=== PATIENT | male | born 1950 | race Caucasian/White ===

== ENCOUNTER 2019-02-22 19:36 | Observation (INO) | payer MEDICARE ==
[~2019-02-22] VITALS: Ht 188 cm; Wt 119.5 kg
--- NOTE | 2019-02-22 19:40 | NUR ---
BIB AMBULANCE FROM [facility] S/P [facility] WHILE HIKING AT [employer], WENT TO [facility] ED WITH LEFT HIP PAIN AND ABRASIONS TO FACE, NOSE, LEFT ELBOW, BILATERAL HANDS, BILATERAL KNEES, LEFT BACK. A&OX4. NO LOC WITH FALL. PT HERE FOR ADMISSION TO HOSPITAL FOR 24 HOUR OBSERVATION AND REPEAT HEAD CT. PT TAKING PLAVIX AND XARELTO. CONT BP, PULSE OX, CARDIAC MONITORS IN PLACE. CMS AND NEURO INTACT. ASSESSMENT COMPLETED. RATES PAIN 1/10 IN LEFT HIP, REFUSES NEED FOR PAIN MEDICATION "THEY GAVE ME TYLENOL AT THE OTHER HOSPITAL." DENIES NECK OR MIDLINE BACK PAIN AND ANY CP, SOB, N/V/D, VISUAL CHANGES OR GIBSON. ON WAY TO ED. FALL PRECAUTIONS IN PLACE. SIDE RIALS UPX2. NO ACITVE BLEEDING FROM ANY WOUNDS. AWAITING EVAL BY ERP.
--- NOTE | 2019-02-22 20:10 | NUR ---
DR. MONROY AT BEDSIDE FOR EVALUATION. AWAITING ORDERS.
--- NOTE | 2019-02-22 20:27 | NUR ---
PT SPOUSE DAPHNE CALLED ([phone]) PER PT REQUEST AND UPDATED ON POC, PT SPOUSE TO BRING MEDICATIONS FOR ACCURATE MED REC.
--- NOTE | 2019-02-22 20:53 | NUR ---
VERBAL REPORT TO VINAY INFANTE AT THIS TIME FOR ROOM 364.
[2019-02-22] MEDS ORDERED: ATOR-2 PO (21:20)
[2019-02-22] MEDS ORDERED: RIVA20TA PO (21:20)
[2019-02-22] MEDS ORDERED: METF500T17 PO (21:20)
[2019-02-22] MEDS ORDERED: LISI5TAB7 PO (21:20)
[2019-02-22] MEDS ORDERED: CLOP75TA52 PO (21:20)
[2019-02-22] MEDS ORDERED: SOTA120T26 PO (21:20)
[2019-02-22] MEDS ORDERED: CARV6.252 PO (21:20)
[2019-02-22] MEDS ORDERED: hydrALAzine 20 MG/ML, 1ML IVPush PRN (23:00)
[2019-02-22] MEDS ORDERED: DOCUSATE 100 MG CAPSULE PO PRN (23:00)
[2019-02-22] MEDS ORDERED: LIDODERM 5% PATCH TD PRN (23:00)
[2019-02-22] MEDS ORDERED: ACETAMINOPHEN 325 MG TABLET PO PRN (23:00)
[2019-02-22] MEDS ORDERED: ONDANSETRON ODT 4 MG PO PRN (23:00)
[2019-02-22] MEDS: CARVEDILOL 6.25 MG TABLET PO SCH (23:36)
[2019-02-22] MEDS: LISINOPRIL 5 MG TABLET PO SCH (23:36)
[2019-02-22] MEDS: SOTALOL 120MG TABLET PO SCH (23:36)
[2019-02-23 02:19] VITALS: BP 139/69
[2019-02-23 05:08] LABS: BASOPHILS # (AUTO) 0.04 x10^3/uL (0-0.1); BASOPHILS % (AUTO) 1 % (0-1); EOSINOPHILS # (AUTO) 0.24 x10^3/uL (0-0.4); EOSINOPHILS % (AUTO) 3 % (1-7); LYMPHOCYTES # (AUTO) 2.41 x10^3/uL (1-3.4); LYMPHOCYTES % (AUTO) 34 % (22-44); MD NO; MEAN CORPUSCULAR HEMOGLOBIN 31.8 pg (27.5-34.5); MEAN CORPUSCULAR HGB CONC 33.1 g/dL (33.2-36.2); MEAN CORPUSCULAR VOLUME 95.9 fL (81-97); MEAN PLATELET VOLUME 8.8 fL (7.4-10.4); MONOCYTES # (AUTO) 0.74 x10^3/uL (0.2-0.8); MONOCYTES % (AUTO) 10 % (2-9); NEUTROPHILS # (AUTO) 3.72 x10^3/uL (1.8-6.8); NEUTROPHILS % (AUTO) 52 % (42-75); PLATELET COUNT 206 x10^3/uL (130-400); RED BLOOD COUNT 4.69 x10^6/uL (4.38-5.82); RED CELL DISTRIBUTION WIDTH 13.4 % (9.4-14.8)
[2019-02-23 05:15] LABS: ANION GAP 6 mmol/L (5-15); CALCIUM 8.6 mg/dL (8.5-10.1); CHLORIDE 109 mmol/L (98-107); CREATININE 0.73 mg/dL (0.7-1.3)
[2019-02-23 07:04] VITALS: BP 132/64
[2019-02-23] MEDS ORDERED: ATORVASTATIN 80 MG TABLET PO SCH (09:00)
[2019-02-23] MEDS: SOTALOL 120MG TABLET PO SCH (10:11)
[2019-02-23] MEDS: CARVEDILOL 6.25 MG TABLET PO SCH (10:11)
[2019-02-23] MEDS: LISINOPRIL 5 MG TABLET PO SCH (10:12)
[2019-02-23 13:48] VITALS: BP 106/73
== END 2019-02-23 17:10 | disposition home or self-care (01) ==
LOC: ED 20:41 → UNDOADMOB 20:45 → EDIP 20:45 → INTOOBSV 20:45 → EDIP 21:11 → 3NE 21:11 → EDIP 22:53 → UNDODISOB 02-23 17:10 → 3NE 02-23 17:10 → DCLOUNGE 02-23 17:10
PROVIDERS: ADMIT Internal Medicine; ATTEND Internal Medicine
DX: S00.81XA Abrasion of other part of head, initial encounter (principal); S00.31XA Abrasion of nose, initial encounter; S80.212A Abrasion, left knee, initial encounter; S80.211A Abrasion, right knee, initial encounter; S60.812A Abrasion of left wrist, initial encounter; M25.552 Pain in left hip; D68.69 Other thrombophilia; I48.2 Chronic atrial fibrillation; I11.0 Hypertensive heart disease with heart failure; I50.9 Heart failure, unspecified; I25.10 Atherosclerotic heart disease of native coronary artery without angina pectoris; E66.01 Morbid (severe) obesity due to excess calories; E11.9 Type 2 diabetes mellitus without complications; G47.33 Obstructive sleep apnea (adult) (pediatric); Z68.33 Body mass index [BMI] 33.0-33.9, adult; Z79.01 Long term (current) use of anticoagulants; Z79.899 Other long term (current) drug therapy; Z95.5 Presence of coronary angioplasty implant and graft; W01.0XXA Fall on same level from slipping, tripping and stumbling without subsequent striking against object, initial encounter; Y93.89 Activity, other specified; Y92.89 Other specified places as the place of occurrence of the external cause
CPT/HCPCS: 36415; 70450; 80048; 82962; 85025; 99284; G0378; 99285